=== PATIENT | male | born 2000 | race Caucasian/White ===

== ENCOUNTER 2025-05-23 09:18 | Emergency (ER) | payer OTHER, SELFPAY ==
--- NOTE | ~2025-05-23 | XR_ITS ---
EXAMINATION: XR TIBIA FIBULA 2 VIEWS LEFT, XR ANKLE 3 OR MORE VIEWS LEFT HISTORY: fall COMPARISON: There are no prior studies available for comparison. FINDINGS: Three views of the left ankle and AP and lateral views of the left tibia and fibula are submitted. Osseous mineralization is normal. There is no fracture or dislocation. The joint spaces are preserved. The soft tissues are unremarkable. XR/XR ankle LT min 3V IMPRESSION: Unremarkable examination of the left ankle and tibia and fibula. Electronically signed by: Darci Arevalo MD 05/23/2025 09:52 AM [facility]
--- NOTE | ~2025-05-23 | XR_ITS ---
EXAMINATION: XR TIBIA FIBULA 2 VIEWS LEFT, XR ANKLE 3 OR MORE VIEWS LEFT HISTORY: fall COMPARISON: There are no prior studies available for comparison. FINDINGS: Three views of the left ankle and AP and lateral views of the left tibia and fibula are submitted. Osseous mineralization is normal. There is no fracture or dislocation. The joint spaces are preserved. The soft tissues are unremarkable. XR/XR tibia fibula LT 2V IMPRESSION: Unremarkable examination of the left ankle and tibia and fibula. Electronically signed by: Darci Arevalo MD 05/23/2025 09:52 AM [facility]
[2025-05-23 09:23] VITALS: BP 148/68; PULSE 99; RESP 16; TEMP 36.6; O2SAT 96; BMI 32.1
--- NOTE | 2025-05-23 10:32 | ED_ITS ---
HPI - General Adult General Chief complaint: Extremity Injury, Lower Stated complaint: injury Time Seen by Provider: 05/23/25 10:30 Source: patient Mode of arrival: ambulatory Limitations: no limitations History of Present Illness ED Provider: Lowell Cadena [facility] narrative: 24 yold male healthy presents to the ED for left ankle pain after rolling ankle on ice. patient denies any slipped walking down a hill at work. Patient denies any chest pain, shortness of breath, hitting head loss of consscouness, abdominal pain, nuasea, vomitting, nuasea, or vopmitting. Related Data Previous Rx's ?Medication ?Instructions ?Recorded naproxen 500 mg tablet 500 mg PO BID PRN pain #14 t abs 05/23/25 Allergies Allergy/AdvReac Type Severity Reaction Status Date / Time No Known Allergies Allergy Verified 05/23/25 09:25 Review of Systems 2 Review of Systems: left ankle pain Yes all other systems are reviewed and are negative PMFSH Social History Social History Advance Directives: No Advance Directives Information Provided: Yes Do you have a plan to hurt others: No Plan Physical Exam ED Vital Signs: Vital Signs - 24 hr 05/23/25 09:23 Temperature 97.8 F Pulse Rate 99 Respiratory Rate 16 Blood Pressure 148/68 H Pulse Oximetry 96 Oxygen Delivery Method Room Air BMI result Body Mass Index 32.1 Const General: cooperative, healthy appearing, comfortable, no acute distress, well developed, alert and awake Orientation/consciousness: patient oriented x3 HENMT Head: Yes normal to inspection, Yes No palpable skull fracture present, Yes normocephalic and Yes atraumatic Eyes General: appearance normal, both eyes and all related structures Neck Neck: Yes normal visual inspection, Yes full ROM, Yes no lymphadenopathy, Yes no meningeal signs, Yes trachea midline, Yes supple, No anterior neck swelling and No tender Chest Chest palpation & inspection: normal inspection of the chest and normal palpation of entire chest wall Resp Effort & Inspection: normal respiratory effort and able to speak in complete sentences Auscultation: clear to auscultation bilaterally Cardio Jugular venous distension: no JVD Heart sounds: S1 normal heart sound present and S2 normal heart sound present GI Inspection: Yes normal to inspection Palpation (GI): Soft to palpation, not firm, nontender, no guarding and not rigid General: Yes no CVA tenderness Back/Spine/Pelvis Back: no CVA tenderness and No back tenderness Skin General skin exam: no rashes or lesions noted, elasticity normal and turgor normal Neuro General: patient oriented x3, gait normal, tone normal, moves all extremities, Normal light touch and pain sensation, no meningeal signs, no focal motor deficits, CN's II-XI intact bilaterally and normal sensation to monofilament Extrem General: Yes normal to inspection, Yes full ROM and Yes capillary refill normal Ankle/foot/toe images: 2 1. positive for tenderness and slight swelling with mild ecchymosis. negative for erythema, deformitiy, crepitus, red streakes, pus discharge, or foul odor. Rest of extremity is normal. Motor, neuro, and Vascular exam is intact. Psych Appearance: grossly normal, well kempt and not disheveled Medical Decision Making Medical Decision Making MDM Narrative: 24 yold male presents to the ED left ankle pain after rolling ankle on ice. Patient denies falling to the ground or hitting head. no foot tenderness. Patient xrays negative for fracture or dislocation. history and physical exam does not indicate sepsis, compartment syndrome, DVT, arterial occlusion, septic joint, Achilles tendon rupture, osteomyelitis, necrotizing fasciitis, or any other life-threatening etiology. Patient has question that is home. Patient is placed in walking boot Differential Diagnosis Differential Diagnoses: The differential diagnosis associated with the presentation includes ( fracture dislocated) Admission/Observation Consideration of admission/observation: Escalation of care including admission/observation considered Independent Interpretation I performed an independent interpretation of an: Plain X-Ray Radiology Impression Discussion of test interpretation with radiology: I have reviewed the radiologist's reading. Independent Historian Clinical information obtained from an independent historian. History obtained from or confirmed by: Other (patient) Prescription Management I considered prescription management with: Pain Medication Discharge Plan Discharge Clinical Impression: Ankle sprain and strain Patient Disposition: Home, Self-Care Instructions: Ankle Sprain (ED), Crutch Instructions (ED), P.R.I.C.E. Treatment (ED), Walking Boot (ED) Additional Instructions: recommend follow up with primary care provider. Return to the ED immediately for any swelling, redness, bluish black discoloration, fever, chills, red streaks, or any other concerning symptoms. Ordering Physician: Generic ED Physician Date of Service: 05/23/25 Procedure(s): XR ankle LT min 3V Accession Number(s): [id number] cc: Generic ED Physician; Physician,None ~ Reason for Exam: fall EXAMINATION: XR TIBIA FIBULA 2 VIEWS LEFT, XR ANKLE 3 OR MORE VIEWS LEFT HISTORY: fall COMPARISON: There are no prior studies available for comparison. FINDINGS: Three views of the left ankle and AP and lateral views of the left tibia and fibula are submitted. Osseous mineralization is normal. There is no fracture or dislocation. The joint spaces are preserved. The soft tissues are unremarkable. XR/XR ankle LT min 3V IMPRESSION: Unremarkable examination of the left ankle and tibia and fibula. Electronically signed by: Darci Arevalo MD 05/23/2025 09:52 AM [facility] [place]: New naproxen 500 mg tablet 500 mg PO BID PRN (Reason: pain) Qty: 14 0RF Stand Alone Forms: Work/School Release Interventions: ED Discharge Assessment Last Done: 05/23/25 10:54 Discharge Date/Time: 05/23/25 10:55 Print Language: Icelandic
[2025-05-23 10:54] VITALS: BP 138/72; PULSE 98; RESP 16; TEMP 36.7; O2SAT 98
== END 2025-05-23 10:55 | disposition home or self-care (01) ==
PROVIDERS: Emergency Provider Student in an Organized Health Care Education/Training Program
DX: S93.402A Sprain of unspecified ligament of left ankle, initial encounter (principal); W17.81XA Fall down embankment (hill), initial encounter; Y93.29 Activity, other involving ice and snow; Y92.219 Unspecified school as the place of occurrence of the external cause
CPT/HCPCS: 73590; 73610; 99282; 99283

== ENCOUNTER → 2025-05-23 09:44 | Outpatient (BNV) | payer SELFPAY | PROVIDERS: Visit Provider Radiology Diagnostic Radiology | DX: Z04.3 Encounter for examination and observation following other accident (principal) | CPT/HCPCS: 73590; 73610 ==